=== PATIENT | male | born 1995 | race Caucasian/White ===

== ENCOUNTER 2024-01-30 22:38 | Emergency (ER) | payer SELFPAY ==
--- NOTE | ~2024-01-30 | CT_ITS ---
CT of the Abdomen and Pelvis: Indication: Flank pain, dysuria Technique: 2.5 mm axial scans were obtained through the abdomen and pelvis following intravenous adm inistration of 100 cc of Omnipaque 350. Dose reduction technique was used on this scan by utilizing a utomated exposure control and iterative reconstruction technique. The dose-length product (DLP) was 1 442.22 mGy-cm. Findings: Scans through the lung bases are unremarkable. The liver, spleen, pancreas, gallbladder, adrenals and kidneys are within normal limits. No evidence of aortic aneurysm. No lymphadenopathy. No bowel obstruction or bowel wall thickening. There is minimal haziness in the central mesentery wit h small shotty lymph nodes. Images through the pelvis were performed. Urinary bladder unremarkable. No pelvic mass seen. No ascit es. Impression: Mild mesenteric panniculitis. Reviewed, dictated and finalized at [facility]. Impression: Mild mesenteric panniculitis.
[2024-01-30 22:40] VITALS: BP 130/84; PULSE 124; RESP 20; TEMP 37.8; O2SAT 97
--- NOTE | 2024-01-30 22:46 | ED.GENADULT ---
HPI - General Adult General Chief complaint: Urogenital-Male Stated complaint: Testicular and Kidney Pain Time Seen by Provider: 01/30/24 22:42 History of Present Illness HPI narrative: Nate is a previously healthy 28M that presented to the ED with 2 weeks of bilateral flank pain and dysuria as well as a tender testicle. It was waxing and waning but became much worse today. He has had subjective fevers, chills, nausea and aches. Related Data Allergies Allergy/AdvReac Type Severity Reaction Status Date / Time lorazepam [From Ativan] Allergy Unknown Verified 01/30/24 22:42 Review of Systems Review of Systems: All systems reviewed & are unremarkable except as noted in HPI and below Exam Const: General: cooperative, healthy appearing, comfortable, no acute distress, well developed, alert, awake and Physically active Orientation/consciousness: oriented to person, oriented to place and oriented to time HENMT: Head: normal to inspection, normocephalic and atraumatic Ears: hearing grossly normal bilaterally and external ears normal Face/Nose/Sinus: Normal external nose present Eyes: General: appearance normal, both eyes and all related structures Periorbital: periorbital findings normal Sclera: sclerae normal Pupils: Equal, round and reactive pupils present Neck: Neck: normal visual inspection Chest: Chest palpation & inspection: normal inspection of the chest Resp: Effort & Inspection: normal respiratory effort, able to speak in complete sentences and no respiratory distress Cardio: Jugular venous distension: no JVD Skin: General skin exam: normal color and no rashes or lesions noted Neuro: General: oriented to person, oriented to place and oriented to time Cranial nerves: Yes Equal, round and reactive pupils present Extrem: General: normal to inspection Course Course Emergency Course: Ordered urine studies, labs, fluids, antibiotics, zofran and toradol. CBC, urine and chemistries were largely unremarkable. CT showed no acute finding of the abdomen or pelvis. Despite CT being normal the tender epididymis is concerning for epididymitis so will treat for this. Vital Signs Vital signs: Vital Signs Temperature 100.1 F H 01/30/24 22:40 Pulse Rate 124 H 01/30/24 22:40 Respiratory Rate 20 01/30/24 22:40 Blood Pressure 130/84 01/30/24 22:40 Pulse Oximetry 97 01/30/24 22:40 Oxygen Delivery Room Air 01/30/24 22:40 Temperature 98.6 F 01/31/24 02:23 Pulse Rate 100 01/31/24 02:23 Respiratory Rate 20 01/31/24 02:23 Blood Pressure 122/67 01/31/24 02:23 Pulse Oximetry 100 01/31/24 02:23 Oxygen Delivery Room Air 01/31/24 02:23 Medical Decision Making Vital Signs Vital Signs: Vital Signs Temperature 100.1 F H 01/30/24 22:40 Pulse Rate 124 H 01/30/24 22:40 Respiratory Rate 20 01/30/24 22:40 Blood Pressure 130/84 01/30/24 22:40 Pulse Oximetry 97 01/30/24 22:40 Oxygen Delivery Room Air 01/30/24 22:40 Temperature 98.6 F 01/31/24 02:23 Pulse Rate 100 01/31/24 02:23 Respiratory Rate 20 01/31/24 02:23 Blood Pressure 122/67 01/31/24 02:23 Pulse Oximetry 100 01/31/24 02:23 Oxygen Delivery Room Air 01/31/24 02:23 Lab Data 01/30/24 22:45 01/30/24 22:45 Labs: Lab Results 01/30/24 01/30/24 01/30/24 Range/Units 22:45 22:50 23:29 WBC 8.9 (4.8-10.8) K/mm3 RBC 5.09 (4.70-6.10) M/mm3 Hgb 14.8 (14.0-18.0) g/dL Hct 42.3 (40.0-54.0) % MCV 83.1 (78.0-102.0) fL MCH 29.1 (27.0-31.0) pg MCHC 35.0 (32-36) g/dL RDW 12.3 (11.6-14.4) % Plt Count 267 (150-420) K/mm3 MPV 11.3 H (8.7-11.0) fl Immature Gran % (Auto) 0.3 H (0.0-0.0) % Neut % (Auto) 82.4 H (50.0-70.0) % Lymph % (Auto) 6.9 L (18.0-42.0) % [place] % (Auto) 6.6 (2.0-11.0) % Eos % (Auto) 3.5 (1.0-6.0) % Baso % (Auto) 0.3 (0.0-1.0) % Lymph # (Auto) 0.61 L (1.10-4.50
[2024-01-30 23:02] LABS: Basophils Absolute Auto 0.03 K/mm3 (0.00-0.10); Basophils Percent Auto 0.3 % (0.0-1.0); Eosinophils Absolute Auto 0.31 K/mm3 (0.02-0.50); Eosinophils Percent Auto 3.5 % (1.0-6.0); Hematocrit 42.3 % (40.0-54.0); Hemoglobin 14.8 g/dL (14.0-18.0); Immature Granulocyte Absolute 0.03 K/mm3 (0.00-0.00); Immature Granulocyte Percent A 0.3 % (0.0-0.0); Lymphocytes Absolute Auto 0.61 K/mm3 (1.10-4.50); Lymphocytes Percent Auto 6.9 % (18.0-42.0); Mean Corpuscular Hemoglobin 29.1 pg (27.0-31.0); Mean Corpuscular Volume 83.1 fL (78.0-102.0); Mean Platelet Volume 11.3 fl (8.7-11.0); Monocytes Absolute Auto 0.59 K/mm3 (0.10-0.90); Monocytes Percent Auto 6.6 % (2.0-11.0); Neutrophils Absolute Auto 7.32 K/mm3 (1.70-7.20); Neutrophils Percent Auto 82.4 % (50.0-70.0); Platelet Count Result 267 K/mm3 (150-420); Red Blood Count 5.09 M/mm3 (4.70-6.10); Red Cell Distribution Width 12.3 % (11.6-14.4); White Blood Count 8.9 K/mm3 (4.8-10.8)
[2024-01-30] MEDS: SODIUM CHLORIDE 0.9% IV 1,000 ML 999 ML IV CONT (23:11)
[2024-01-30] MEDS: ONDANSETRON INJ 4 MG/2 ML VIAL IV PUSH (23:11)
[2024-01-30] MEDS: KETOROLAC 15 MG/ML VIAL (*BKC) IV PUSH (23:12)
[2024-01-30 23:13] LABS: Alanine Aminotransferase 18 U/L (16-63); Albumin Level 3.7 g/dL (3.4-5.0); Alkaline Phosphatase 83 U/L (46-116); Anion Gap 12 mmol/L (4-12); Aspartate Amino Transferase 12 U/L (15-37); Bilirubin,Total 0.7 mg/dL (0.00-1.00); Blood Urea Nitrogen 14 mg/dL (7-18); Calcium 9.3 mg/dL (8.5-10.1); Carbon Dioxide 26 mmol/L (21-32); Chloride 102 mmol/L (98-108); Estimated CRCL calculation 102 ml/min; Estimated Glomerular Filt Rate > 60; Glucose 116 mg/dL (70-99); Osmolality Calculated 291 mOsm/kg (285-295); Potassium 3.3 mmol/L (3.5-5.1); Sodium 140 mmol/L (136-145); Total Protein 8.1 g/dL (6.4-8.2)
[2024-01-30 23:16] LABS: Lactic Acid Reflex 1.6 mmol/L (0.4-2.0)
[2024-01-30 23:19] VITALS: BP 127/78; PULSE 117; RESP 20; O2SAT 100
[2024-01-30 23:23] LABS: Add Urine Microscopic? YES; Appearance Urine Clear (Clear); Bilirubin Urine Negative (Negative); Blood Urine Negative (Negative); Color Urine Yellow (Yellow); Glucose Urine UA Negative (Negative); Ketones Urine Negative (Negative); Leukocyte Esterase Ur Negative LEU/UL (Negative); Nitrate Urine Negative (Negative); Protein Urine Trace (Negative); Specific Grav Ur 1.015 (1.010-1.020); pH Urine >=9.0 (5.0-8.0)
[2024-01-30 23:27] LABS: Mucus Urine Heavy /lpf
[2024-01-30] MEDS: levoFLOXacin 750 MG/D5W 150 ML 750 MG/150 ML BAG 100 MG IVPB (23:58)
[2024-01-31 00:37] VITALS: BP 122/67; PULSE 118; RESP 20; TEMP 36.9; O2SAT 99
[2024-01-31] MEDS: SODIUM CHLORIDE 0.9% IV 1,000 ML 999 ML IV CONT (01:05)
[2024-01-31] MEDS: MORPHINE SULFATE (*CRX) 2 MG/ML INJ IV PUSH (01:06)
--- NOTE | 2024-01-31 01:37 | PC.NURSE ---
Reports received, ERP in to speak to w/ pt and POC for d/c home. Pt ambulatory to [facility]. Finishing IVF infusing as per order. VSS.
[2024-01-31 02:23] VITALS: BP 122/67; PULSE 100; RESP 20; TEMP 37; O2SAT 100
[2024-01-31 11:14] LABS: Trichomonas Vag PCR NOT DETECTED (NOT DETECTE)
[2024-01-31 11:38] LABS: Chlamydia trachomatis NOT DETECTED (NOT DETECTE); Neisseria gonorrhoeae PCR NOT DETECTED (NOT DETECTE)
--- NOTE | 2024-02-02 12:45 | PC.NURSE ---
PRELIMINARY BLOOD CULTURE RESULTS, NO GROWTH TO DATE.
== END 2024-01-31 02:23 | disposition home or self-care (01) ==
PROVIDERS: Emergency Provider Family Medicine; PCP Family Medicine
DX: N39.0 Urinary tract infection, site not specified (principal); N45.1 Epididymitis
CPT/HCPCS: 36415; 74177; 80053; 81001; 83605; 85025; 87040; 87491; 87591; 87661; 96361; 96365; 96367; 96374; 96375; 99284; J0696; J1885; J1956; J2270; J2405; J7030; Q9967

== ENCOUNTER 2024-02-16 23:11 | Emergency (ER) | payer MEDICAID, SELFPAY ==
[2024-02-16] VITALS (7 sets, daily range): BP systolic 118–132; BP diastolic 69–101; PULSE 83–93; RESP 18; TEMP 36.4; O2SAT 94–98
--- NOTE | 2024-02-16 23:14 | ED.NAVMDI ---
HPI - Nausea/Vomiting/Diarrhea General Chief complaint: Abdominal Pain Stated complaint: n/v/d Time Seen by Provider: 02/16/24 23:14 Source: patient Mode of arrival: ambulatory Limitations: no limitations History of Present Illness HPI Narrative: 28-year-old male with a recent episode of Epididymitis on 02/03/2024 treated with Levaquin( negative UA /GC/ chlamydia/Trichomonas) presents to the ED with -- 12 hour history of abdominal cramps/ pain. pain is diffuse and intermittent. No exacerbating or relieving factors. -- Multiple episodes of nausea and vomiting. His vomitus is clear. -- One episode of diarrhea no fever or chills. MD elicited complaint: nausea, vomiting, diarrhea and abdominal pain Onset (ago): hour(s) ( 12 hours) Description of vomiting: watery Description of diarrhea: watery Associated nausea: Yes Associated abdominal pain: Yes Location of pain: diffuse Radiation: diffuse Pain consistency: intermittent Severity: moderate Quality: aching Exacerbating factors: none Relieving factors: none Associated symptoms: denies other symptoms Related Data Allergies Allergy/AdvReac Type Severity Reaction Status Date / Time lorazepam [From Ativan] Allergy Unknown Verified 01/30/24 22:42 Review of Systems Review of Systems: All systems reviewed & are unremarkable except as noted in HPI and below Constitutional: Constitutional: Reports as per HPI and Reports no additional constitutional complaints Eyes: Eyes: Reports as per HPI and Reports no additional eye complaints ENT: Reports system reviewed and no additional complaints, except as documented and Reports as per HPI Cardiovascular: Cardiovascular: Reports as per HPI and Reports no additional cardiovascular complaints Respiratory: Respiratory: Reports as per HPI and Reports no additional respiratory complaints Gastrointestinal: Gastrointestinal: Reports as per HPI, Reports no additional gastrointestinal complaints, Reports abdominal pain, Reports diarrhea, Reports nausea and Reports vomiting Genitourinary: Genitourinary: Reports no additional male genitourinary complaints Musculoskeletal: Musculoskeletal: Reports no additional musculoskeletal complaints and Reports as per HPI Integumentary/Breasts: Skin/Breast: Reports system reviewed and no additional complaints, except as docu and Reports as per HPI Neurologic: Reports system reviewed and no additional complaints, except as documented and Reports as per HPI Psychiatric: Psychiatric: Reports no additional psychiatric complaints and Reports as per HPI Endocrine: Endocrine: Reports no additional endocrine complaints and Reports as per HPI Hematologic/Lymphatic: Hematologic/Lymphatic: Reports no additional hematologic/lymphatic complaints and Reports as per HPI Allergic/Immunologic: Allergic/Immunologic: Reports no additional allergic/immunologic complaints and Reports as per HPI Exam Narrative: blood pressure 132/101.. Afebrile Const: General: healthy appearing and no acute distress Nutritional Appearance: well nourished Orientation/consciousness: patient oriented x3 Limitations: no limitations HENMT: Head: normal to inspection Ears: external ears normal Face/Nose/Sinus: Normal external nose present Face and sinus: normal facial exam Mouth: Yes Normal oral and palatal mucosa present Throat: posterior oropharynx normal Eyes: Conjunctivae: conjunctivae normal Cornea: corneas normal Pupils: Equal, round and reactive pupils present EOM: EOMs intact bilaterally Direct Ophthalmoscopy: no photophobia Neck: Neck: normal visual inspection and no lymphadenopathy Chest: Chest palpation & inspection: normal inspection of the chest Resp: Effort & Inspection: normal respiratory effort Auscultation: clear to auscultation bilaterally Cardio: Rate: regular rate Rhythm: regular rhythm GI: GI Palp: Yes Soft to palpation Auscultation: normal bowel sounds Other: diffuse tenderness without any rigidity/ rebound. : General: Yes no CVA tenderness Back/Spine/Pelvis: Back: no CVA tenderness Skin: General skin exam: normal color Rashes: no rashes Wounds: no wounds Neuro: General: patient oriented x3, moves all extremities, no meningeal signs, no focal motor deficits and CN's II-XI intact bilaterally Cranial nerves: Yes Nystagmus not present Speech: normal speech Gait exam (Neuro): Normal gait present Extrem: General: normal to inspection and no clubbing, cyanosis or edema Psych: Mental Status: mental status grossly normal Affect: normal affect Attitude: cooperative Course Course Emergency Course: Gastroenteritis-- patient has diffuse tenderness without any rigidity /rebound. Patient is noted to have an elevated white cell count of 13.6. Patient is afebrile. No peritoneal signs noted. The patient had a CT of abdomen and pelvis on 01/31/2024 which revealed mild mesenteric panniculitis. Two years ago the patient has had multiple CT scans for diffuse abdominal pain without any conclusive findings. At this time will give the patient Dilaudid and Zofran for the abdominal pain and nausea. Will discharge the patient home on Zofran. Advised the patient to return to the ED if he has persistent abdominal pain for further evaluation and CT scan of the abdomen and pelvis. the patient was diagnosed to have Epididymitis , mesenteric panniculitis on 01/31/2024 and was treated with Levaquin. Would consider C diff but the patient predominant vomiting with just 1 episode of loose stools. Vital Signs Vital signs: Vital Signs Temperature 36.4 C 02/16/24 23:14 Pulse Rate 93 02/16/24 23:14 Respiratory Rate 18 02/16/24 23:14 Blood Pressure 132/101 H 02/16/24 23:14 Pulse Oximetry 97 02/16/24 23:14 Oxygen Delivery Room Air 02/16/24 23:14 Temperature 36.4 C 02/16/24 23:14 Pulse Rate 83 02/16/24 23:18 Respiratory Rate 18 02/16/24 23:18 Blood Pressure 129/89 02/16/24 23:18 Pulse Oximetry 98 02/16/24 23:18 Oxygen Delivery Room Air 02/16/24 23:18 MDM - Nausea/Vomiting/Diarrhea MDM Narrative Medical decision making narrative: Abdominal pain gastroenteritis Differential Diagnosis Differential diagnosis: Likely traveler's diarrhea and drug-induced nausea and vomiting Medical Records Attestation: I reviewed the patient's medical records. Lab Data Attestation: I reviewed the patient's lab results. 02/16/24 23:34 02/16/24 23:34 Labs: Lab Results 02/16/24 02/16/24 Range/Units 23:34 23:47 WBC 13.6 H (4.8-10.8) K/mm3 RBC 5.41 (4.70-6.10) M/mm3 Hgb 15.7 (14.0-18.0) g/dL Hct 45.2 (40.0-54.0) % MCV 83.5 (78.0-102.0) fL MCH 29.0 (27.0-31.0) pg MCHC 34.7 (32-36) g/dL RDW 12.4 (11.6-14.4) % Plt Count 320 (150-420) K/mm3 MPV 10.8 (8.7-11.0) fl Immature Gran % (Auto) 0.3 H (0.0-0.0) % Neut % (Auto) 83.4 H (50.0-70.0) % Lymph % (Auto) 7.5 L (18.0-42.0) % [place] % (Auto) 7.4 (2.0-11.0) % Eos % (Auto) 1.1 (1.0-6.0) % Baso % (Auto) 0.3 (0.0-1.0) % Lymph # (Auto) 1.02 L (1.10-4.50) K/mm3 [place] # (Auto) 1.00 H (0.10-0.90) K/mm3 Eos # (Auto) 0.15 (0.02-0.50) K/mm3 Baso # (Auto) 0.04 (0.00-0.10) K/mm3 Abs Immat Gran (auto) 0.04 H (0.00-0.00) K/mm3 Absolute Neuts (auto) 11.30 H (1.70-7.20) K/mm3 Absolute Nucleated RBC 0.00 (0.00-0.00) K/mm3 Nucleated RBC % 0.0 (0-0.0) % Sodium 139 (136-145) mmol/L Potassium 3.7 (3.5-5.1) mmol/L Chloride 102 (98-108) mmol/L Carbon Dioxide 25 (21-32) mmol/L Anion Gap 12 (4-12) mmol/L BUN 20 H (7-18) mg/dL Creatinine 1.05 (0.70-1.30) mg/dL Estim Creat Clear Calc 108 ml/min Estimated GFR > 60 (59 - ) Glucose 110 H (70-99) mg/dL Calculated Osmolality 291 (285-295) mOsm/kg Lactic Acid 0.7 (0.4-2.0) mmol/L Calcium 9.5 (8.5-10.1) mg/dL Total Bilirubin 1.2 H (0.00-1.00) mg/dL AST 16 (15-37) U/L ALT 26 (16-63) U/L Alkaline Phosphatase 83 (46-116) U/L Total Protein 8.6 H (6.4-8.2) g/dL Albumin 4.1 (3.4-5.0) g/dL Lipase 34 (16-77) U/L Urine Color Yellow (Yellow) Urine Appearance Clear (Clear) Urine pH 6.0 (5.0-8.0) Ur Specific [place] 1.020 (1.010-1.020) Urine Protein Trace H (Negative) Urine Glucose (UA) Negative (Negative) Urine Ketones Trace H (Negative) Ur Blood (Man) Negative (Negative) Urine Nitrate Negative (Negative) Urine Bilirubin 1+ H (Negative) Urine Urobilinogen 0.2 (0.2-1.0) mg/dL Leukocyte Esterase Rfl Negative (Negative) PATRICIA/UL Urine RBC 0-2 (0-2) /hpf Urine WBC 0-3 (0-3) /hpf Ur Squamous Epith Cells Rare (Few) /hpf Urine Bacteria Trace (None) /hpf Urine Mucus Few H /lpf Discharge Plan Discharge Clinical Impression: Gastroenteritis Abdominal pain Qualifiers: Abdominal location: generalized Qualified Code(s): R10.84 - Generalized abdominal pain Patient Disposition: Home, Self-Care Condition: Stable Instructions: Antibiotic Form, Acute Nausea and Vomiting (ED), Abdominal Pain (ED) Patient Language: Kazakh Prescriptions: New ondansetron HCl 4 mg tablet 4 mg PO Q8H PRN (Reason: nausea and vomiting) 4 Days Qty: 10 0RF Follow-up/Referrals: Kade George MD [Primary Care Provider] - Time of Disposition: 00:11
--- NOTE | 2024-02-16 23:24 | PC.NURSE ---
pt aware urine specimen is needed. pt given urinal. will ring call light when done urinating
--- NOTE | 2024-02-16 23:25 | PC.NURSE ---
patient given warm blanket, call light within reach and visitor at bedside. blood bank assistant at bedside for blood draw. RN monitoring.
[2024-02-16 23:38] LABS: Basophils Absolute Auto 0.04 K/mm3 (0.00-0.10); Basophils Percent Auto 0.3 % (0.0-1.0); Eosinophils Absolute Auto 0.15 K/mm3 (0.02-0.50); Eosinophils Percent Auto 1.1 % (1.0-6.0); Hematocrit 45.2 % (40.0-54.0); Hemoglobin 15.7 g/dL (14.0-18.0); Immature Granulocyte Absolute 0.04 K/mm3 (0.00-0.00); Immature Granulocyte Percent A 0.3 % (0.0-0.0); Lymphocytes Absolute Auto 1.02 K/mm3 (1.10-4.50); Lymphocytes Percent Auto 7.5 % (18.0-42.0); Mean Corpuscular HGB Conc 34.7 g/dL (32-36); Mean Corpuscular Volume 83.5 fL (78.0-102.0); Mean Platelet Volume 10.8 fl (8.7-11.0); Monocytes Percent Auto 7.4 % (2.0-11.0); Neutrophils Percent Auto 83.4 % (50.0-70.0); Platelet Count Result 320 K/mm3 (150-420); Red Blood Count 5.41 M/mm3 (4.70-6.10); Red Cell Distribution Width 12.4 % (11.6-14.4); White Blood Count 13.6 K/mm3 (4.8-10.8)
[2024-02-16 23:50] LABS: Add Urine Microscopic? YES; Appearance Urine Clear (Clear); Bilirubin Urine 1+ (Negative); Blood Urine Negative (Negative); Color Urine Yellow (Yellow); Glucose Urine UA Negative (Negative); Ketones Urine Trace (Negative); Leukocyte Esterase Ur Negative LEU/UL (Negative); Nitrate Urine Negative (Negative); Protein Urine Trace (Negative); Urobilinogen Urine 0.2 mg/dL (0.2-1.0)
[2024-02-16 23:53] LABS: Alanine Aminotransferase 26 U/L (16-63); Albumin Level 4.1 g/dL (3.4-5.0); Alkaline Phosphatase 83 U/L (46-116); Anion Gap 12 mmol/L (4-12); Aspartate Amino Transferase 16 U/L (15-37); Bilirubin,Total 1.2 mg/dL (0.00-1.00); Blood Urea Nitrogen 20 mg/dL (7-18); Calcium 9.5 mg/dL (8.5-10.1); Carbon Dioxide 25 mmol/L (21-32); Chloride 102 mmol/L (98-108); Estimated CRCL calculation 108 ml/min; Estimated Glomerular Filt Rate > 60; Glucose 110 mg/dL (70-99); Lipase 34 U/L (16-77); Osmolality Calculated 291 mOsm/kg (285-295); Potassium 3.7 mmol/L (3.5-5.1); Sodium 139 mmol/L (136-145); Total Protein 8.6 g/dL (6.4-8.2)
[2024-02-16 23:55] LABS: Bacteria Urine Trace /hpf; RBC Urine 0-2 /hpf (0-2); Squamous Epithelial Cell Urine Rare /hpf (Few); WBC Urine 0-3 /hpf (0-3)
[2024-02-16 23:56] LABS: Mucus Urine Few /lpf
[2024-02-16 23:56] LABS: Lactic Acid Reflex 0.7 mmol/L (0.4-2.0)
[2024-02-17] VITALS: O2SAT 97
[2024-02-17 00:01] VITALS: BP 131/90
[2024-02-17 00:15] VITALS: O2SAT 97
[2024-02-17] MEDS: ONDANSETRON HCL ODT 4 MG TABLET PO (00:19)
[2024-02-17] MEDS: HYDROmorphone HCL INJ (*CRX) 2 MG/ML VIAL 0.5 MG IM (00:20)
--- NOTE | 2024-02-17 00:23 | PC.NURSE ---
update provided by ERP and patient medicated per order, see MAR. visitor at bedside. RN monitoring.
[2024-02-17 00:30] VITALS: O2SAT 95
[2024-02-17 00:45] VITALS: PULSE 80; RESP 16; O2SAT 94
== END 2024-02-17 00:56 | disposition home or self-care (01) ==
PROVIDERS: Emergency Provider Internal Medicine Critical Care Medicine; PCP Family Medicine
DX: K52.9 Noninfective gastroenteritis and colitis, unspecified (principal)
CPT/HCPCS: 36415; 80053; 81001; 83605; 83690; 85025; 96372; 99283; A9270; J1171

== ENCOUNTER 2024-04-23 21:50 | Emergency (ER) | payer BC, SELFPAY ==
[2024-04-23 22:02] VITALS: BP 141/86; PULSE 85; RESP 16; TEMP 36.8; O2SAT 98
--- NOTE | 2024-04-23 22:09 | ED.BACK ---
HPI - Back Pain/Injury General Chief Complaint: Back Pain/Injury Stated Complaint: Back Pain Source: patient Mode of arrival: ambulatory Limitations: no limitations History of Present Illness HPI Narrative: 28-year-old white male complains of chronic back pain for years since he was in high school. He thinks he had it x-rayed back then that shows some degenerative disease. Basically has pain pretty much every day but he says he has not been taking anything but it has been worse the last couple weeks and then tonight when he lifted his toddler out of the car seat he felt a pop in his lower back. Denies any weakness IV drug use paresthesias numbness urinary or fecal incontinence or dysfunction fever. Been taking for the pain this week. He has use lidocaine patches in the past bases that does not work. He has been unemployed for last year and a half. Denies any cough fever sore throat runny nose swelling lumps or bumps rash or itching bleeding or bruising problems walking talking seeing or hearing or any other complaints. Related Data Allergies Allergy/AdvReac Type Severity Reaction Status Date / Time lorazepam (From Ativan) Allergy Unknown Verified 01/30/24 22:42 Review of Systems Review of Systems: All systems reviewed & are unremarkable except as noted in HPI and below PMFSH Comments Chronic low back pain Exam Narrative: White male patient with no apparent distress.? Head normocephalic, atraumatic.? Eyes conjunctiva pink sclera nonicteric.? Extraocular movements are intact.? Ears externally normal.? Oropharynx is clear with moist mucous membranes without exudates.? Neck is supple nontender no lymphadenopathy.? Back is nontender.? Lungs are clear.? Heart is regular rate and rhythm without murmurs gallops or rubs.? Chest wall nontender. Abdomen is soft and nontender no hepatosplenomegaly or masses no CVA tenderness no abdominal bruits.? Extremities no cyanosis clubbing or edema.? Skin is warm and dry without rashes or lesions.? Neurological patient is alert and oriented x4.? Motor and sensory grossly intact.? Gait is normal. Course Vital Signs Vital signs: Vital Signs Temperature 36.8 C 04/23/24 22:02 Pulse Rate 85 04/23/24 22:02 Respiratory Rate 16 04/23/24 22:02 Blood Pressure 141/86 H 04/23/24 22:02 Pulse Oximetry 98 01/12/25 22:02 Oxygen Delivery Room Air 04/23/24 22:02 Temperature 36.8 C 04/23/24 22:02 Pulse Rate 85 04/23/24 22:02 Respiratory Rate 16 04/23/24 22:02 Blood Pressure 141/86 H 04/23/24 22:02 Pulse Oximetry 98 04/23/24 22:02 Oxygen Delivery Room Air 04/23/24 22:02 MDM - Back Pain/Injury MDM Narrative Medical decision making narrative: ?Patient placed in room: 3 with his Jean Claude ? History and physical was performed. Independent Historian: External Source Review: Differential Dx includes but not limited to: back strain degenerative disc disease Medications were Reviewed: home meds reviewed Medications given: Toradol 30 mg IM, Flexeril 10 mg p.o. Independently Interpreted by me: Shared decision Making: evaluation was discussed all questions were asked and answered patient agreed with the plan. He will take Tylenol and ibuprofen as needed for pain take Flexeril 10 mg 3 times a day for muscle relaxation. And do back Stretching and strengthening exercises. Social Situation Impacting Patients Care: Discussed with DrClaire AU DIAGNOSIS: low back strain DISPOSITION : discharged home CONDITION AT DISCHARGE: stable Discharge Plan Discharge Clinical Impression: Low back strain Patient Disposition: Home, Self-Care Condition: Stable Instructions: Low Back Strain (ED), Lower Back Exercises (ED) Additional Instructions: Tylenol and or ibuprofen as needed for pain. Back exercises daily. Flexeril 10 mg 3 times a day for 5 days. Follow-up with your primary care provider Patient Language: Wallisian Prescriptions: New cyclobenzaprine 10 mg tablet 10 mg PO TID 5 Days Qty: 15 0RF Follow-up/Referrals: Kade George MD [Primary Care Provider] - Time of Disposition: 23:08
[2024-04-23] MEDS: CYCLOBENZAPRINE HCL 10 MG TABLET PO (22:28)
[2024-04-23] MEDS: KETOROLAC 30 MG/ML VIAL (*BKC) IM (22:29)
[2024-04-23 23:14] VITALS: BP 136/74; PULSE 74; RESP 18; TEMP 36.6; O2SAT 98
== END 2024-04-23 23:14 | disposition home or self-care (01) ==
PROVIDERS: Emergency Provider Emergency Medicine; PCP Family Medicine
DX: S39.012A Strain of muscle, fascia and tendon of lower back, initial encounter (principal); X58.XXXA Exposure to other specified factors, initial encounter
CPT/HCPCS: 96372; 99283; A9270; J1885

== ENCOUNTER 2024-07-17 12:41 | Emergency (ER) | payer BC, SELFPAY ==
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
[2024-07-17 12:43] VITALS: BP 143/94; PULSE 94; RESP 20; TEMP 36.9; O2SAT 98
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
[2024-07-17 13:00] VITALS: BP 128/74; PULSE 91; RESP 20; O2SAT 98
[2024-07-17] MEDS: SODIUM CHLORIDE 0.9% IV 1,000 ML 100 ML IV CONT (13:10)
[2024-07-17 13:23] VITALS: BP 139/90; PULSE 87; RESP 20; O2SAT 99
[2024-07-17 13:35] VITALS: BP 141/84; PULSE 87; RESP 20; O2SAT 99
--- NOTE | 2024-07-17 13:44 | PC.NURSE ---
1241 HARD C-COLLAR APPLIED PER ZULY PT STATES HE HAD NO LOC
[2024-07-17 13:51] VITALS: BP 138/88; PULSE 86; RESP 20; O2SAT 99
--- OUTSIDE RECORDS SUMMARY | 2024-07-17 14:17 | XMS_ITS | Encounter Summary ---
Author Organization [facility] Address [address] [place] [address] Care Team Providers Care Floor Associate Name Role Phone Unavailable Primary Care Provider Unavailabl e Encounter Details Date Type Department Care Team (Late st Contact Info) Description 07/17/2024 1:07 PM CDT Emergency [facility] EMERGENCY DEPARTMENT [address] [place] [phone] Social History Tobacco Use Types Packs/Day Years Used Date Smoking Tobacco: Never Comments:vapes Alcohol Use Standard Drinks/Week Comments Yes 0 (1 standard drink = 0.6 oz pur e alcohol) Sex and Gender Information Value Date Recorded Sex Assigned at Not on file Gender Identity Not on file Sexual Orientation Not on file documented as of this encounter Plan of Treatment Not on file documented as of this encounter Visit Diagnoses Not on filedocumented in this encounter
--- OUTSIDE RECORDS SUMMARY | 2024-07-17 14:17 | XMS_ITS | Clinical Summary ---
Author Organization [facility] Address [address] [place] [address] Care Team Providers Care Felt Coverer Name Role Phone Unavailable Primary Care Provider Unavailabl e Source Comments [facility],non-owned Affiliates and Associated Physician Practices is amultiple site organization consisting of ambulatory clinics and hospital sitesin [place], [place], [place] and [place]. This disclosure is being madepursuant to the Care Everywhere program and may not contain all information available regarding this patient. Last updated 17.[facility] [employer] Allergies No known active allergies Encounters Date Type Department Care Team Description 07/17/2024 1:07 PM CDT Emergency [facility] EMERGENCY DEPARTMENT [address] [place] [phone] from Last 3 Months Social History Tobacco Use Types Packs/Day Years Used Date Smoking Tobacco: Never Comments:vapes Alcohol Use Standard Drinks/Week Comments Yes 0 (1 standard drink = 0.6 oz pur e alcohol) Sex and Gender Information Value Date Recorded Sex Assigned at Not on file Gender Identity Not on file Sexual Orientation Not on file Last Filed Vital Signs Vital Sign Reading Time Taken Comments Blood Pressure 134/62 10/30/2017 7:45 PM CDT Pulse 86 10/30/2017 7:45 PM CDT Temperature 37.1 C (98.7 F) 10/30/2017 5:12 PM CDT Respiratory Rate 22 10/30/2017 7:45 PM CDT Oxygen Saturation 97% 10/30/2017 7:45 PM CDT Inhaled Oxygen Concentration - - Weight - - Height - - Body Mass Index - - Plan of Treatment Health Maintenance Due Date Last Done Comments HIV SCREENING 10/25/2011 HEPATITIS C SCREENING 10/20/2014 DTAP/TDAP/TD VACCINES (1 - Tdap) 10/25/2015 HEPATITIS B VACCINE (1 of 3 - 19+ 3-dose series) 10/25/2015 COVID-19 VACCINE (1 - 2023-2 5 season) 2023 DEPRESSION SCREENING 04/12/2024 INFLUENZA VACCINE (Season Ended) 2024 ZOSTER VACCINE (1 of 2) 2046 HIB VACCINE Aged Out No longer eligi ble based on patient's age to complete this topic HPV VACCINE Aged Out No longer eligi ble based on patient's age to complete this topic MENINGOCOCCAL (Group B) VACC INE SHARED DECISION-MAKING Aged Out No longer eligibl e based on patient's age to complete this topic MENINGOCOCCAL GROUPS A/C/Y/W VACCINE Aged Out No longer eligible b ased on patient's age to complete this topic PNEUMOCOCCAL VACCINE Aged Out No long er eligible based on patient's age to complete this topic MARIELY HOGAN Personal/Family 1995 [address] [address] Mariely Hogan Personal/Family Self [address] [address]
--- OUTSIDE RECORDS SUMMARY | 2024-07-17 14:17 | XMS_ITS | Clinical Summary ---
Author Organization [facility] Address [address] [place] [address] Phone Care Team Providers Care Metal Fabricator Welder Name Role Phone Kade George MD Primary Care Provider Allergies Active Allergy Reactions Criticality Noted Date Comments Lorazepam Hallucinations 11/11/2018 Medications naproxen (NAPROSYN) 500 MG Tablet Take 1 Tab by mouth 2 times daily (with meals). 30 Tab 1 Active cyclobenzaprine (FLEXERIL) 10 MG Tablet Take 1 Tab by mouth nightly. 20 Tab 1 Active Additional Information Patient not taking.Reported on 02/19/2022 famotidine (PEPCID) 20 MG Tablet Take 1 Tablet by mouth 2 times daily. 60 Tablet 2 Active acetaminophen-co deine (TYLENOL #3) 300-30 MG TabletIndication s:Dentalgia Take 1-2 Tablets by mouth every 6 hours as needed for Moderate or more severe pain. 10 Tablet 2 Active Additional Information Patient not taking.Reported on 02/19/2022 ondansetron (ZOFRAN-ODT) 4 MG TABLET DISPERSIBLE Take 1 Tablet by mouth every 6 hours as needed for Nausea - 1st line. 6 Tablet 2 Active naproxen (NAPROSYN) 500 MG Tablet Take 1 Tablet by mouth 2 times daily (with meals). 30 Tablet 2 Active traMADol (ULTRAM) 50 MG TabletIndication s:Left knee sprain Take 1 Tablet by mouth every 6 hours as needed for Moderate or more severe pain. 15 Tablet 2 Active ketorolac (TORADOL) 10 MG Tablet Take 1 Tablet by mouth every 6 hours as needed for Moderate or more severe pain. 20 Tablet 4 Active metoclopramide (REGLAN) 10 MG Tablet Take 1 Tablet by mouth 4 times daily as needed for Other (headache). 10 Tablet 4 Active naproxen (NAPROSYN) 375 MG Tablet Take 1 Tablet by mouth 2 times daily (with meals) for 20 days. 30 Tablet 5 07/21/19 25 Active Encounters Date Type Department Care Team Description 06/30/2024 12:13 PM CDT - 06/30/2024 2:22 PM CDT Emergency [facility] Emergency [address] [place] [address] Cyrus Borges MD Epistaxis Discharge Disposition: Discharged to home or Selfcare 06/30/2024 Travel from Last 3 Months Immunizations Immunization Administration Dates Next Due TDAP Vaccine 10/29/2021 Social History Tobacco Use Types Packs/Day Years Used Date Smoking Tobacco: Never Smokeless Tobacco: Never Alcohol Use Standard Drinks/Week Comments Yes 0 (1 standard drink = 0.6 oz pur e alcohol) rarely Sex and Gender Information Value Date Recorded Sex Assigned at Not on file Legal Sex Male 9:33 PM CDT Gender Identity Not on file Sexual Orientation Not on file Last Filed Vital Signs Vital Sign Reading Time Taken Comments Blood Pressure 136/85 06/30/2024 2:20 PM CDT Pulse 83 06/30/2024 2:20 PM CDT Temperature 36.7 C (98 F) 06/30/2024 12:09 PM CDT Respiratory Rate 15 06/30/2024 2:20 PM CDT Oxygen Saturation 100% 06/30/2024 2:20 PM CDT Inhaled Oxygen Concentration - - Weight 95.3 kg (210 lb) 06/30/2024 12:09 PM CDT Height 167.6 cm (5' 6 ) 06/30/2024 12:09 PM CDT Body Mass Index 33.89 06/30/2024 12:09 PM CDT Plan of Treatment Health Maintenance Due Date Last Done Comments Hepatitis C Virus (HCV) Screening 1995 Influenza Immunization (#1) 2023 SARS-COV-2 Immunization ( season) 2023 Td Immunization Every 10 Years (Adults With 1 Tdap) 10/30/2031 10/29/2021, 11/13/2011 Respiratory Syncytial Virus (RSV) Immunization (Adult) (1 - 1-dose 75+ series) 10/25/2071 Hepatitis B Immunization Completed 998, 1995, 1995 Meningococcal Immunization (ACWY) Completed 11/08/2013, 11/13/2011 DTaP/Tdap/Td Immunization Discontinued 2021, 11/13/2011, 10/03/2001, Additional history exists Pneumococcal Immunization Combined Aged Out No longer eligible based on patient's age to complete this topic Rotavirus Immunization Aged Out No lo nger eligible based on patient's age to complete this topic Insurance [place]ID [place] [id number] Care Teams Metal Fabricator Welder Relationship Specialty Start Date End Date Kade George MD [address] [place], [place] [phone] PCP - General Pediatrics 11/10/18
--- OUTSIDE RECORDS SUMMARY | 2024-07-17 15:03 | XMS_ITS | Clinical Summary ---
Author Organization [facility] Address [address] [place] [address] Care Team Providers Care Rn Lvn Name Role Phone Unavailable Primary Care Provider Unavailabl e Social History Tobacco Use Types Packs/Day Years Used Date Smoking Tobacco: Never Assessed Sex and Gender Information Value Date Recorded Sex Assigned at Not on file Legal Sex Male 6:14 PM CDT Gender Identity Not on file Sexual Orientation Not on file Plan of Treatment Health Maintenance Due Date Last Done Comments Annual Physical 10/25/1999 Hepatitis C 2014 DTaP, Tdap and Td Vaccines ( 1 - Tdap) 10/25/2015 Hepatitis B Vaccines (1 of 3 - 19+ 3-dose series) 10/25/2015 COVID-19 Vaccine (2023-2 5 season) 2023 HPV Vaccines Aged Out No longer eligi ble based on patient's age to complete this topic Meningococcal B Vaccine Aged Out No l onger eligible based on patient's age to complete this topic Meningococcal Vaccine Aged Out No liana brielle eligible based on patient's age to complete this topic Pneumococcal Vaccine: Pediat rics (0 to 5 Years) and At-Risk Patients (6 to 64 Years) Aged Out No longer eligible b ased on patient's age to complete this topic RSV Immunizations Under 20 Months Aged Out No longer eligible based on patient's age to complete this topic
--- OUTSIDE RECORDS SUMMARY | 2024-07-17 15:03 | XMS_ITS | Clinical Summary ---
Author Organization [facility] Address [address] [place] [address] Phone Care Team Providers Care Irrigator Gravity Flow Name Role Phone Kade George MD Primary [...] 06/30/2024 2:22 PM CDT Emergency [facility] Emergency [address] [place] [address] Cyrus Borges MD Epistaxis Discharge [...] Insurance [place] [id number] Care Teams Irrigator Gravity Flow Relationship Specialty Start Date End Date Kade George MD [address] [place], [place] [phone] PCP - General Pediatrics 11/10/18
--- OUTSIDE RECORDS SUMMARY | 2024-07-17 15:03 | XMS_ITS | Encounter Summary ---
Author Organization [facility] Address [address] [place] [address] Care Team Providers Care Fishing Tool Technician Oil Well Name Role Phone Unavailable Primary Care Provider Unavailabl e Encounter Details Date Type Department Care Team (Late st Contact Info) Description 07/17/2024 2:55 PM CDT - Present Emergency [facility] EMERGENCY DEPARTMENT [address] [place] [phone] Social History Tobacco Use Types Packs/Day Years Used Date Smoking Tobacco: Never Comments:vapes Alcohol Use Standard Drinks/Week Comments Yes 0 (1 standard drink = 0.6 oz pur e alcohol) Sex and Gender Information Value Date Recorded Sex Assigned at Not on file Gender Identity Not on file Sexual Orientation Not on file documented as of this encounter Last Filed Vital Signs Vital Sign Reading Time Taken Comments Blood Pressure 124/114 07/17/2024 2:58 PM CDT Pulse 89 07/17/2024 2:58 PM CDT Temperature 36.3 C (97.4 F) 07/17/2024 2:58 PM CDT Respiratory Rate 10 07/17/2024 2:58 PM CDT Oxygen Saturation 99% 07/17/2024 2:58 PM CDT Inhaled Oxygen Concentration - - Weight - - Height - - Body Mass Index - - documented in this encounter Plan of Treatment Not on file documented as of this encounter Visit Diagnoses Not on filedocumented in this encounter Active and Recently Administered Medications Times are shown in CDT. No Frequency Medication Order 07/15/2024 07/16/2024 07/17/2024 fentaNYL (Sublimaze) injection 0.05 mg/mL ADS Med 1 dose, Starting on Wed07/17/24 at 1501, Until Wed07/18/24 at 0314, Created by cabinet override Patient preference for lesser PRN pain meds may be honored when the patient requests a less strong medication, a lower dose, or a less intrusive route of administration when the lesser drug, dose and route have been ordered for the patient. This patient request must be documented in the MAR. If both oral and IV options are ordered for the same pain severity, give oral first unless patient cannot tolerate oral intake 1515 (Due) documented in this encounter
--- OUTSIDE RECORDS SUMMARY | 2024-07-17 15:03 | XMS_ITS | Clinical Summary ---
Author Organization [facility] Address [address] [place] [address] Care Team Providers Care Mattress And Boxsprings Supervisor Name Role Phone Unavailable Primary Care Provider Unavailabl e Source Comments [facility],non-owned Affiliates and Associated Physician Practices is amultiple site organization consisting of ambulatory clinics and hospital sitesin [place], [place], [place] and [place]. This disclosure is being madepursuant to the Care Everywhere program and may not contain all information available regarding this patient. Last updated 17.[facility] [employer] Allergies No known active allergies Encounters Date Type Department Care Team Description 07/17/2024 2:55 PM CDT - Present Emergency [facility] EMERGENCY DEPARTMENT [address] [place] [phone] from Last 3 Months Social History Tobacco [...] this topic MARIELY HOGAN Personal/Family [address] [address] Mariely Hogan Personal/Family Self [address] [address]
== END 2024-07-17 13:54 | disposition short-term general hospital (02) ==
PROVIDERS: Emergency Provider Emergency Medicine; PCP Family Medicine
DX: S30.92XA Unspecified superficial injury of abdominal wall, initial encounter (principal); V48.1XXA Car passenger injured in noncollision transport accident in nontraffic accident, initial encounter
CPT/HCPCS: 71045; 96360; 99285; J7030; L0150